=== PATIENT | male | born 1930 | race Two or more races ===

== ENCOUNTER 2016-11-24 18:20 | Emergency (ER) | payer BC ==
[~2016-11-24] VITALS: Ht 175.3 cm; Wt 90.0 kg
[2016-11-24] MEDS ORDERED: LIDOCAINE HCL/EPINEPHRINE 1%-EPI 1:100,000 20 ML VIAL MC ONE (19:00)
[2016-11-24] MEDS ORDERED: BACITRACIN ZINC OINT UDPKT TOP ONE (19:00)
[2016-11-24 21:05] VITALS: BP 179/86
== END 2016-11-24 21:06 | disposition home or self-care (01) ==
LOC: ER 18:55
DX: S01.81XA Laceration without foreign body of other part of head, initial encounter (principal); E11.9 Type 2 diabetes mellitus without complications; I10 Essential (primary) hypertension; W19.XXXA Unspecified fall, initial encounter; Y93.89 Activity, other specified; Y92.520 Airport as the place of occurrence of the external cause; Y99.8 Other external cause status
CPT/HCPCS: 12014; 70450; 99284; J3490; X7700; Z7610